=== PATIENT | female | born 1985 | race Asian ===

== ENCOUNTER 2018-04-04 16:34 | Emergency (ER) | payer SELFPAY ==
[~2018-04-04] VITALS: Ht 165.1 cm; Wt 61.4 kg
[2018-04-04 17:02] VITALS: BP 119/88
[2018-04-04] MEDS ORDERED: CALC500T7 PO (17:10)
[2018-04-04] MEDS ORDERED: MULT-960 PO (17:10)
[2018-04-04] MEDS ORDERED: OMEP10 PO (17:10)
== END 2018-04-04 19:30 | disposition left against medical advice (07) ==
LOC: EMS 16:35
DX: R10.13 Epigastric pain (principal); K92.1 Melena; Z53.21 Procedure and treatment not carried out due to patient leaving prior to being seen by health care provider